=== PATIENT | female | born 1990 | race African-American/Black ===

== ENCOUNTER 2017-08-22 17:09 | Emergency (ER) | payer OTHER ==
--- NOTE | 2017-08-22 17:21 | PDOC ---
Rapid Medical Evaluation Time Seen by Provider: 08/22/17 17:19 Medical Evaluation: Allergies Allergy/AdvReac Type Severity Reaction Status Date / Time No Known Drug Allergies Allergy Verified 02/22/14 11:58 I have performed a brief in-person evaluation of this patient. The patient presents with a chief complaint of: 23 weeks . had an episode of dizziness and sweating this morning after eating. Has had a headache ever since. Pertinent physical exam findings: none I have ordered the following: labs, UA/culture, ultrasound, EKG The patient will proceed to the ED for further evaluation. Discharge Disposition - Diagnosis Dizziness - Referrals - Patient Instructions - Post Discharge Activity
[2017-08-22 17:26] VITALS: BMI 35.1
[2017-08-22 17:58] LABS: BASO % 0.4 % (0-2.0); EOS % 0.7 % (0-4.5); HEMATOCRIT 34.5 % (32.4-45.2); HEMOGLOBIN 11.2 GM/dL (10.7-15.3); LYMPH % 16.3 % (8-40); MCH 25.3 pg (25.7-33.7); MCHC 32.4 g/dl (32.0-36.0); MEAN CELL VOLUME 78.2 fl (80-96); MEAN PLT VOLUME 8.1 fl (7.5-11.1); MONO % 7.3 % (3.8-10.2); NEUT % 75.3 % (42.8-82.8); PLATELET COUNT 245 K/MM3 (134-434); RBC 4.41 M/mm3 (3.60-5.2); RDW 14.6 % (11.6-15.6); WHITE BLOOD COUNT 9.9 K/mm3 (4.0-10.0)
--- NOTE | 2017-08-22 18:01 | PDOC ---
History of Present Illness - General Chief Complaint: Lightheaded Stated Complaint: DIZZINESS/24 WKS Time Seen by Provider: 08/22/17 17:19 - History of Present Illness Initial Comments: 08/22/17 17:59 26 year old female at 23 weeks of gestation and a hx of asthma presents for dizziness, lightheadedness, sweating and headache since this AM. States that it started around 930am and went away within 30 minutes. She states that a headache remained, which is mild and diffuse. She complains more of being tired and fatigued. Denies chest pain, SOB, nausea, vomiting, diarrhea. Allergies: none Smoke: none Drink: none Drugs: none Past History - Past Medical History Allergies/Adverse Reactions: Allergies Allergy/AdvReac Type Severity Reaction Status Date / Time No Known Drug Allergies Allergy Verified 02/22/14 11:58 Home Medications: Ambulatory Orders Prenat 115/Iron Fum/Folic/Dss [ 19 Tablet] 1 each PO DAILY 05/20/17 Anemia: Yes (H/O ANEMIA) Asthma: Yes Cancer: No Cardiac Disorders: No CVA: No COPD: No CHF: No Dementia: No Diabetes: No GI Disorders: No Disorders: No HTN: No Hypercholesterolemia: No Liver Disease: No Seizures: No Thyroid Disease: No - Surgical History Abdominal Surgery: No Appendectomy: No Cardiac Surgery: No Cholecystectomy: No Lung Surgery: No Neurologic Surgery: No Orthopedic Surgery: No - Immunization History Immunization Up to Date: Yes - Suicide/Smoking/Psychosocial Hx Smoking Status: No Smoking History: Never smoked Have you smoked in the past 12 months: No Number of Cigarettes Smoked Daily: 0 Hx Alcohol Use: No Drug/Substance Use Hx: No Substance Use Type: None Hx Substance Use Treatment: No *Physical Exam - Vital Signs Last Vital Signs Temp Pulse Resp BP Pulse Ox 98.1 F 82 16 123/75 100 08/22/17 17:23 08/22/17 17:23 08/22/17 17:23 08/22/17 17:23 08/22/17 17:23 - Physical Exam Comments: 08/22/17 18:29 . GENERAL: A&Ox3, no acute distress EYES: PERRLA, EOMI ENT: Moist mucus membranes NECK: No JVD LUNGS: CTA, no wheezes HEART: RRR, no murmurs ABDOMEN: Soft, nontender, BS present MUSCULOSKELETAL: No CVA Tenderness EXTREMITIES: 2+ pulses, trace edema NEUROLOGICAL: Cranial nerves II-XII intact. ED Treatment Course - LABORATORY CBC & Chemistry Diagram: 08/22/17 17:49 08/22/17 17:49 Medical Decision Making - Medical Decision Making 08/22/17 18:29 26 year old female hx of asthma presents for dizziness and mild headache -cbc, cmp, UA, ekg -1L NS bolus -tylenol IV 08/22/17 19:44 -labs wnl -ekg unremarkable -patient feels better -medically cleared to be d/c'd to OB floor for monitoring. *DC/Admit/Observation/Transfer Diagnosis at time of Disposition: Dizziness - Discharge Dispostion Disposition: HOME Condition at time of disposition: Stable Decision to Admit order: No - Referrals Referrals: James Hodge [Primary Care Provider] - - Patient Instructions Additional Instructions: You were seen in the emergency room for lightheadedness. You were treated with fluids and tylenol Please see your primary care physician/OB within 1 week of discharge If you experience further lightheadedness, chest pain, shortness of breath, abdominal pain, nausea, vomiting, fevers or chills, please return to the emergency room. - Post Discharge Activity
[2017-08-22] MEDS ORDERED: SODIUM CHLORIDE 1,000 ML IV STA (18:02)
[2017-08-22] MEDS ORDERED: ACETAMINOPHEN 1000 MG/100 ML VIAL (NON FORMULARY) IVPB ONE (18:19)
[2017-08-22] MEDS ORDERED: ACETAMINOPHEN INJECTION 100 ML IVPB ONE (18:20)
[2017-08-22 18:32] LABS: URINE APPEARANCE CLEAR; URINE BILIRUBIN NEGATIVE (<2.0 mg/dL); URINE COLOR STRAW; URINE GLUCOSE (UA) NEGATIVE (NEGATIVE); URINE KETONE NEGATIVE (NEGATIVE); URINE LEUK ESTERASE NEGATIVE (NEGATIVE); URINE NITRITE NEGATIVE (NEGATIVE); URINE PROTEIN NEGATIVE (NEGATIVE); URINE UROBILINOGEN NEGATIVE mg/dL (0.2-1.0)
[2017-08-22 18:33] LABS: ALBUMIN 2.9 g/dl (3.4-5.0); ANION GAP 9 (8-16); BILIRUBIN,TOTAL 0.2 mg/dL (0.2-1.0); BLOOD UREA NITROGEN 7 mg/dL (7-18); CALCIUM 8.6 mg/dL (8.5-10.1); CHLORIDE 105 mmol/L (98-107); CO2 23 mmol/L (21-32); CREATININE 0.4 mg/dL (0.55-1.02); GLUCOSE,RANDOM 76 mg/dL (74-106); SGOT/AST 20 U/L (15-37); SGPT/ALT 33 U/L (12-78); SODIUM 137 mmol/L (136-145); TOT PROT 6.8 g/dl (6.4-8.2)
[2017-08-22 18:34] LABS: ALK PHOS 30 U/L (45-117)
[2017-08-22] MEDS ORDERED: METOCLOPRAMIDE HCL INJECTION 10 MG/2 ML VIAL IVPUSH ONE (18:50)
--- NOTE | 2017-08-22 18:51 | PDOC ---
Attending Attestation - HPI HPI: 08/22/17 18:52 The patient is a 26 year old female who is 23 weeks with a significant PMH of asthma who presents to the emergency department for evaluation of dizziness earlier this morning. The patient reports a sudden onset of dizziness at about 9:30AM this morning which resolved in about 30 minutes, after which the patient states she developed a headache and generalized malaise. She presents to the ED with a mild headache and generalized malaise. She denies lightheadedness or dizziness at presentation. The patient notes she has had about 2 episodes of dizziness since being which have resolved on their own. She denies taking any medications. She denies fevers or chills. She denies chest pain or shortness of breath. She denies blurry vision or double vision. Allergies: NKDA PCP: Dr. Hodge - Physicial Exam PE: 08/22/17 18:52 Constitutional: Awake, alert, oriented. No acute distress. Head: Normocephalic. Atraumatic Cardiovascular: Regular rate. Regular rhythm. S1, S2 regular. Distal pulses are 2+ and symmetric. Pulmonary/Chest: No evidence of respiratory distress. Clear to auscultation bilaterally No wheezing, rales or rhonchi. Abdominal: (+) Gravid abdomen. Soft and non-distended. There is no tenderness. No rebound, guarding or rigidity. No organomegaly. No palpable masses. Good bowel sounds. Back: No CVA tenderness. Musculoskeletal: (+) Mild bilateral foot edema. No cyanosis. No clubbing. Full range of motion in all extremities. No calf tenderness. Radial/pedal pulses are intact and 2+ bilaterally Skin: Skin is warm and dry. No petechiae. No purpura. Neurological: Alert and oriented to person, place, and time. Cranial nerves II -XII are grossly intact. Normal speech. Strength is grossly symmetric. No sensory deficits. Psychiatric: Good eye contact. Normal interaction, affect and behavior. <Ivan Fallon - Last Filed: 08/22/17 18:52> - Resident Resident Name: Chet Campbell - ED Attending Attestation I have performed the following: I have examined & evaluated the patient, The case was reviewed & discussed with the resident, I agree w/resident's findings & plan, Exceptions are as noted - Medical Decision Making 08/22/17 18:51 I, Dr. Blank Wu, DO, attest that this document has been prepared under my direction and personally reviewed by me in its entirety. I further attest, that it accurately reflects all work, treatment, procedures and medical decision -making performed by me. 08/22/17 19:45 26yo female at 23 weeks getation -pt with lightheade dtoday and nausea -pt with slight manjarrez -will send pre-eclampsia labs - bp stable -will hydrate -ua -bedside ultrasound shows FHR 135 -no pelvic pain, no vaginal bleeding, no loss of fluid, no vag discharge 08/22/17 19:47 pt states feeling better pt po challenged and tolerated po no manjarrez no lightheaded case discussed with L/D who accepts pt upstair for monitoring pt plans on delivering at [facility]. pt is medically clear from the ED stable for d/c to home <Blank Wu - Last Filed: 08/22/17 19:52>
[2017-08-22] MEDS ORDERED: METOCLOPRAMIDE HCL INJECTION 10 MG/2 ML VIAL ONE (19:05)
[2017-08-22 19:21] LABS: EPI CELLS RARE /HPF (FEW); URINE MUCUS RARE
[2017-08-22 20:32] VITALS: BP 115/66; PULSE 91; TEMP 98.7
--- NOTE | 2017-08-23 09:13 | EKG ---
Test Reason : Blood Pressure : / mmHG Vent. Rate : 082 BPM Atrial Rate : 082 BPM P-R Int : 140 ms QRS Dur : 074 ms QT Int : 360 ms P-R-T Axes : 043 036 019 degrees QTc Int : 420 ms NORMAL SINUS RHYTHM POSSIBLE LEFT ATRIAL ENLARGEMENT WHEN COMPARED WITH ECG OF 08-APR-2012 13:53, NO SIGNIFICANT CHANGE WAS FOUND Confirmed by YASH LICONA MD ([id number]) on 08/23/2017 9:12:58 AM Referred By: Confirmed By:YASH LICONA MD
== END 2017-08-22 21:25 | disposition home or self-care (01) ==
LOC: JER 17:09
DX: O26.892 Other specified pregnancy related conditions, second trimester (principal); R42 Dizziness and giddiness; Z3A.23 23 weeks gestation of pregnancy
CPT/HCPCS: 36415; 80053; 81003; 81015; 85025; 86850; 86900; 86901; 87086; 93005; 93010; 99284-25; J0131; J7030